=== PATIENT | male | born 1930 | race Caucasian/White ===

== ENCOUNTER 2017-01-27 18:38 | Inpatient (IN) | payer MEDICARE, BC ==
[2017-01-27] MEDS ORDERED: Piperacillin/Tazobactam 3.375 GM in Sodium Chloride 0.9% 100 ML IVPB SCH (21:00)
[2017-01-27] MEDS ORDERED: Oseltamivir 75 MG CAP PO SCH (21:00)
[2017-01-27] MEDS ORDERED: Acetaminophen 325 MG TAB PO PRN (21:29)
[2017-01-27] MEDS ORDERED: Bisacodyl 5 MG TAB PO PRN (21:29)
[2017-01-27] MEDS ORDERED: Vancomycin HCl 1 GM in Premix Bag 1 BAG IVPB SCH (21:30)
--- NOTE | 2017-01-27 22:25 | HP ---
PRIMARY CARE PROVIDER: Dr. Fawn Coker M.D. CHIEF COMPLAINT: Cough. HISTORY OF PRESENT ILLNESS: Mr. Abdul is a pleasant 86-year-old gentleman who was seen at [facility] on 01/27/2017. Mr. Abdul is currently nonmovable, unable to provide any significant history. History was obtained from discussion with his daughter by the bedside, discussi on with the emergency room physician, and by review of old medical records. Mr. Abdul has been having cough for a few days. He was diagnosed with influenza 3 days ago. He wa s started on Tamiflu. He was seen at [facility] yesterday after he was sent from [facility] for fever. It was recommended that he receive Tylenol [id number]. He was discharged back to [facility]. He was again seen in the emergency room today because he continued to have fever. He was also having vomiting and not able to retain medications. REVIEW OF SYSTEMS: Could not be completed because of the patient's nonverbal status. PAST MEDICAL HISTORY: Significant for coronary artery disease with coronary artery bypass graft, hyp ertension, dyslipidemia, dementia, meningioma, chronic cholelithiasis, sick sinus syndrome with pacem rachid, overactive bladder, Alzheimer disease, Parkinson disease. PAST SURGICAL HISTORY: Significant for coronary artery bypass graft, meningioma resection, pacemaker insertion, and carotid endarterectomy. SOCIAL HISTORY: He lives at [facility]. No history of tobacco use, alcohol use, or recr eational drug use. CODE STATUS: I discussed his code status. He is DNR. ALLERGIES: No known drug allergies. CURRENT MEDICATIONS: These were reviewed from the group home record. FAMILY HISTORY: Significant for myocardial infarction in his father. PHYSICAL EXAMINATION: GENERAL: Mr. Abdul is awake, alert, not in acute distress. VITAL SIGNS: Blood pressure is 115/68, pulse is 65, he is breathing at rate of 20, and saturating 96 % on room air. He is afebrile. EYES: No scleral icterus. No conjunctival pallor. ENT: Dry mucosal membranes, no oropharyngeal erythema or exudates. NECK: Supple, nontender, normal range of movement. Trachea midline. RESPIRATORY: Bilateral rhonchi present. Accessory muscles of breathing are not active. Chest wall movements are symmetric bilaterally. CARDIOVASCULAR: S1 and S2 are heard, regular. Peripheral pulses are palpable. No carotid bruit, no pericardial rub. ABDOMEN: Soft, nontender, bowel sounds are heard, no hepatomegaly, no splenomegaly. NEUROLOGIC: Full neurologic examination was not possible secondary to the patient's noncooperation. There is no facial droop. He has cogwheel rigidity. There is no tremor. Deep tendon reflexes 2+, plantar reflexes downgoing bilaterally. PSYCHIATRIC: The patient appears to be in normal mood. Unable to assess orientation to person, plac e, or time. SKIN: No rashes or subcutaneous nodules. LYMPHATIC: No cervical lymphadenopathy. MUSCULOSKELETAL: Moves all 4 extremities. LABORATORY DATA AND INVESTIGATIONS: Mr. Abdul's labs and investigations were reviewed. I reviewed his electrocardiogram which has tremor artifact. The patient appears to be in normal sinus rhythm. I also reviewed his chest x-ray from 01/26/2017, which does not reveal any pulmonary infiltrates. C T scan of the chest done today at [facility] showed multifocal pneumonia with cavitations in the le ft lower lobe concerning for cavitary pneumonic process. Laboratory investigations show normal white count, normal hemoglobin, decreased platelet count of 115,000, last known platelet count 160,000 on 01/05/2017, normal sodium, normal potassium, elevated creatinine of 1.55, last known creatinine 1.33 and on 01/05/2017, elevated blood urea nitrogen of 28, normal lactic acid level, unremarkable liver p rofile, urinalysis that is positive for protein, blood, bilirubin, and casts. ASSESSMENT AND PLAN: Mr. Abdul is a pleasant 86-year-old gentleman who was seen at [facility] on 01/27/2017 following transfer from [facility]. His problem li includes: 1. Pneumonia: Mr. Abdul has cavitary pneumonia of the left lower lobe. He will be admitted to [facility]. I will continue him on vancomycin and Zosyn which have already been started. We will aw ait blood cultures. 2. Influenza: I requested the emergency room physician to repeat the influenza screen. For now, we will continue him on Tamiflu. There is no documented influenza in the medical record available to stephanie gonzalez. 3. Renal insufficiency: Likely secondary to dehydration. 4. Dehydration: Provide intravenous fluids. Follow creatinine and electrolytes. 5. Coronary artery disease: Appears to be stable. 6. Hypertension: Monitor vital signs, titrate antihypertensives as needed. LEVEL OF RISK: High. LEVEL OF COMPLEXITY: High.
[2017-01-27] MEDS: Sodium Chloride 0.9% 1,000 ML IV SCH (23:20)
[2017-01-27] MEDS: Piperacillin/Tazobactam 4.5 GM in Sodium Chloride 0.9% 100 ML IVPB SCH (23:41)
[2017-01-28] MEDS: Acetaminophen 650 MG Suppository PR PRN (04:27)
[2017-01-28 05:05] LABS: Anion Gap 9 mmol/L (10-20); BUN (Urea Nitrogen) 31 mg/dL (8.4-25.7); Calc. Creatinine Clearance 46 mL/min (70-130); Calcium 8.3 mg/dL (7.8-10.44); Carbon Dioxide 28 mmol/L (23-31); Chloride 103 mmol/L (98-107); Estimated GFR-MDRD 52; Glucose 106 mg/dL (83-110); Potassium 3.8 mmol/L (3.5-5.1); Sodium 136 mmol/L (136-145)
[2017-01-28] MEDS: Piperacillin/Tazobactam 4.5 GM in Sodium Chloride 0.9% 100 ML IVPB SCH ×3 (05:17→22:11)
[2017-01-28 05:37] LABS: #Lymphocytes 1.1 thou/uL (1.20-3.40); #Monocytes 0.6 thou/uL (0.11-0.59); %Basophils 0.1 % (0.0-1.0); %Eosinophils 0.1 % (0.0-10.0); %Monocytes 7.4 % (0.0-10.0); %Neutrophils 78.3 % (42.0-75.0); Hemoglobin 12.4 g/dL (14.0-18.0); Mean Corpuscular HGB CONC 33.3 g/dL (32.0-36.0); Mean Corpuscular Hemoglobin 31.9 pg (27.0-31.0); Mean Corpuscular Volume 95.6 fl (80.0-94.0); PLT Morphology Comment Appears Decreased; Platelet Count 106 thou/uL (130-400); RBC Distribution Width 12.6 % (11.5-14.5); Red Blood Cell (RBC) Count 3.89 mill/uL (4.70-6.10); White Blood Cell (WBC) Count 7.6 thou/uL (4.8-10.8)
[2017-01-28] MEDS: Sodium Chloride 0.9% 1,000 ML IV SCH (08:21)
[2017-01-28] MEDS: Oseltamivir 75 MG CAP PO SCH ×2 (08:22→20:07)
--- NOTE | 2017-01-28 09:37 | CON ---
DATE OF CONSULTATION: 01/28/2017 HISTORY: This is an 86-year-old elderly gentleman presented as a DNR, [facility]. His x-ray was normal to my surprise. His CAT scan showed bibasilar infiltrates, a little bit more pr onounced infiltrate in the left base is suggestive of a cavitary infiltrate. Clearly these findings were not seen on the routine chest x-ray. The patient is unable to give any history. He has a daughter who is presently not available at this time. He was seen in [place] where a repeat influenza titer was positive. He has had persisten t pain. PAST MEDICAL HISTORY: Pertinent for known cardiac disease, history of stent placement, history of pa dashaaker. Coronary artery disease, history of Alzheimer's disease, Parkinson's dementia, hyperlipidem ia, hypertension. PAST SURGICAL HISTORY: Melanoma 2015, pneumo craniotomy. CABG, cholecystectomy, carotid surgery. R ight hip surgery. MEDICATIONS: A list of medicine from the jail included Ativan, oxybutynin, donepezil 10, Zof ran, potassium, lovastatin 40, Tylenol, hydralazine 10. ALLERGIES: None. SOCIAL/FAMILY HISTORY: Unclear whether he has any history of tobacco abuse, but previous medical rec ords which were reviewed extensively at length shows no alcohol or tobacco abuse, no drug abuse. Othe rwise unremarkable. REVIEW OF SYSTEMS: Otherwise 10 point negative. PHYSICAL EXAMINATION: GENERAL: Encephalopathic, but appears to be in no acute distress. VITAL SIGNS: Blood pressure is 180/80, sats 98, respiratory rate 17, temperature 99. CHEST: Chest revealed no wheezing or crackles. CARDIAC: Normal S1-S2. No gallops. ABDOMEN: Soft. No masses. LABORATORY: White count 7000, H&H 12 and 37, platelet count 106, low. His electrolytes normal. Cre atinine 1.35. BNP is normal. IMPRESSION: 1. Febrile illness. 2. Bilateral bronchopneumonia, left side appears cavitary, possibly aspiration. 3. Positive influenza titer, this is new. 4. Dementia. 5. Renal failure. 6. Coronary artery disease status post pacemaker. PLAN: He is on vancomycin and Zosyn which should be adequate. I have added steroids and scheduled n ebulizer treatments. Sputum for culture. If it is staph I am going to switch him over to Zyvox. Please note this is 70 minutes of my time spent at the bedside with the patient on the floor and in t he unit.
--- NOTE | 2017-01-28 16:02 | PDOC.PN ---
- Subjective Encounter Start Date: 01/28/17 Encounter Start Time: 16:00 Subjective: Seen and examined feeling a little bit better - Objective Resuscitation Status: Resuscitation Status DNR:Do Not Resuscitate Vital Signs & Weight: Vital Signs (12 hours) Temp Pulse Resp BP Pulse Ox 01/28/17 13:49 65 18 01/28/17 11:56 63 22 H 86/52 L 01/28/17 08:42 97 01/28/17 08:24 99.4 F 86 22 H 98 01/28/17 08:22 99.4 F 86 22 H 122/59 L 98 01/28/17 05:00 98.9 F Weight Weight 172 lb 12.8 oz I&O: 01/27/17 01/28/17 01/29/17 06:59 06:59 06:59 Intake Total 722 Output Total 550 Balance 172 Result Diagrams: 01/28/17 04:20 01/28/17 04:20 Phys Exam - Physical Examination Constitutional: NAD HEENT: PERRLA, moist MMs, sclera anicteric, TM's clear Neck: no nodes, no JVD, supple, full ROM Respiratory: no wheezing, no rales, no rhonchi, clear to auscultation bilateral Cardiovascular: RRR, no significant murmur, no rub Gastrointestinal: soft, non-tender, no distention, positive bowel sounds Musculoskeletal: no edema, pulses present Dx/Plan (1) Bilateral pneumonia Code(s): J18.9 - PNEUMONIA, UNSPECIFIED ORGANISM Status: Acute (2) Influenza Code(s): J11.1 - FLU DUE TO UNIDENTIFIED INFLUENZA VIRUS W OTH RESP MANIFEST Status: Acute (3) Fever Code(s): R50.9 - FEVER, UNSPECIFIED Status: Acute (4) Dementia Code(s): F03.90 - UNSPECIFIED DEMENTIA WITHOUT BEHAVIORAL DISTURBANCE Status: Chronic (5) Hypertension Code(s): I10 - ESSENTIAL (PRIMARY) HYPERTENSION Status: Chronic - Plan plan discussed w/ family, continue antibiotics, PT/OT, social security specialist, respiratory therapy Appreciate pulmonary input -: Should be able to transfer to medical atleast in the next 24hrs * .
[2017-01-28] MEDS: Dextrose 5 % And 0.9 % NaCl 1,000 ML IV SCH (17:44)
[2017-01-28] MEDS: Vancomycin HCl 1 GM in Premix Bag 1 BAG IVPB SCH (20:04)
[2017-01-29 05:19] LABS: #Lymphocytes 0.4 thou/uL (1.20-3.40); #Monocytes 0.1 thou/uL (0.11-0.59); #Neutrophils 3.4 thou/uL (1.40-6.50); %Basophils 0.3 % (0.0-1.0); %Eosinophils 0.1 % (0.0-10.0); %Lymphocytes 10.5 % (21.0-51.0); %Neutrophils 86.2 % (42.0-75.0); Hemoglobin 12.4 g/dL (14.0-18.0); Mean Corpuscular HGB CONC 33.6 g/dL (32.0-36.0); Mean Corpuscular Hemoglobin 32.1 pg (27.0-31.0); Mean Corpuscular Volume 95.6 fl (80.0-94.0); Mean Platelet Volume 7.8 fL (7.4-10.4); Platelet Count 100 thou/uL (130-400); RBC Distribution Width 12.4 % (11.5-14.5); Red Blood Cell (RBC) Count 3.85 mill/uL (4.70-6.10)
[2017-01-29 05:36] LABS: Anion Gap 15 mmol/L (10-20); BUN (Urea Nitrogen) 25 mg/dL (8.4-25.7); Calc. Creatinine Clearance 61 mL/min (70-130); Calcium 8.4 mg/dL (7.8-10.44); Carbon Dioxide 21 mmol/L (23-31); Chloride 107 mmol/L (98-107); Estimated GFR-MDRD 73; Glucose 210 mg/dL (83-110); Sodium 139 mmol/L (136-145)
[2017-01-29] MEDS: Dextrose 5 % And 0.9 % NaCl 1,000 ML IV SCH (06:14)
[2017-01-29] MEDS: Piperacillin/Tazobactam 4.5 GM in Sodium Chloride 0.9% 100 ML IVPB SCH ×3 (06:14→23:09)
[2017-01-29] MEDS: Oseltamivir 75 MG CAP PO SCH ×2 (09:46→21:27)
--- NOTE | 2017-01-29 13:22 | PQF ---
CLINICAL DOCUMENTATION IMPROVEMENT CLARIFICATION FORM: ICD-10 Updated PLEASE DO AN ADDENDUM TO THE PROGRESS NOTE WITH ANY DOCUMENTATION UPDATES OR ADDITIONS AND CARRY THROUGH TO DC SUMMARY. THANK YOU. DATE: 01/28/17 ATTN: DR. MARQUEZ Please exercise your independent, professional judgment in responding to the clarification form. Clinical indicators are provided on the bottom of this form for your review Please check appropriate box(s): [ ] Aspiration Pneumonia [ ] Empirically treating Gram Negative Pneumonia [ ] Empirically treating Anaerobic Pneumonia [ ] Simple Pneumonia (community acquired - nosocomial) [ ] Bronchopneumonia [ ] Pneumonia of unknown etiology [ ] Other diagnosis [ ] Unable to determine In addition, please specify: Present on Admission (POA): [ ] Yes [ ] No [ ] Unable to determine For continuity of documentation, please document condition throughout progress notes and discharge summary. Thank You. CLINICAL INDICATORS - SIGNS / SYMPTOMS / LABS H&P 01/27: "PNEUMONIA" CONSULTATION NOTE 01/28: "BILATERAL BRONCHOPNEUMONIA, LEFT SIDE APPEARS CAVITARY , POSSIBLY ASPIRATION. SPEECH THERAPY NOTE 01/28: "PT NOTED WITH CONTINUED WET, CRACKLY RESPIRATIONS THROUGHOUT PO TRIALS AND DELAYED THROAT CLEARING INCONSISTENTLY AND MULTIPLE WEAK SWALLOWS WITH ALL TEXTURES." RISKS: DEMENTIA MODERATE-SEVERE FUNCTIONAL IMPAIRMENT (PER SPEECH THERAPY NOTE 01/28) DYSPHAGIA TREATMENT: SPEECH THERAPY CONSULT PULMONARY CONSULT SOLUMEDROL (01/28-PRESENT) IV ZOSYN (ER-PRESENT) IV VANCOMYCIN (ER-PRESENT) DUONEBS (01/28-PRESENT) (This form is maintained as a part of the permanent medical record) 2014 [employer]. All Rights Reserved FARHAN [email or web address] Office: [phone] [facility] HOSPITALKannan
--- NOTE | 2017-01-29 18:32 | PDOC.PN ---
- Subjective Encounter Start Date: 01/29/17 Encounter Start Time: 18:31 Subjective: seen and examined failed swallowing evaluation - Objective Resuscitation Status: Resuscitation Status DNR:Do Not Resuscitate Vital Signs & Weight: Vital Signs (12 hours) Temp Pulse Resp BP Pulse Ox 01/29/17 15:50 98.6 F 70 20 137/59 L 100 01/29/17 12:59 68 18 96 01/29/17 12:00 98.0 F 82 20 162/70 H 99 01/29/17 08:14 100 01/29/17 08:11 71 20 100 01/29/17 08:00 97.4 F L 65 20 100 01/29/17 07:34 97.4 F L 65 20 146/67 H 100 Weight Weight 175 lb 4 oz I&O: 01/28/17 01/29/17 01/30/17 06:59 06:59 06:59 Intake Total 722 2393 Output Total 550 1100 Balance 172 1293 Result Diagrams: 01/29/17 04:25 01/29/17 04:25 Phys Exam - Physical Examination Constitutional: NAD HEENT: PERRLA, moist MMs, sclera anicteric, TM's clear Neck: no nodes, supple, full ROM +Rales Cardiovascular: RRR, no significant murmur, no rub Gastrointestinal: soft, non-tender, no distention Dx/Plan (1) Bilateral pneumonia Code(s): J18.9 - PNEUMONIA, UNSPECIFIED ORGANISM Status: Acute Qualifiers: Pneumonia type: aspiration pneumonia Lung location: lower lobe of lung Qualified Code(s): J69.0 - Pneumonitis due to inhalation of food and vomit (2) Influenza Code(s): J11.1 - FLU DUE TO UNIDENTIFIED INFLUENZA VIRUS W OTH RESP MANIFEST Status: Acute (3) Fever Code(s): R50.9 - FEVER, UNSPECIFIED Status: Acute (4) Dementia Code(s): F03.90 - UNSPECIFIED DEMENTIA WITHOUT BEHAVIORAL DISTURBANCE Status: Chronic (5) Hypertension Code(s): I10 - ESSENTIAL (PRIMARY) HYPERTENSION Status: Chronic - Plan plan discussed w/ family, continue antibiotics, PT/OT, delinquency prevention social worker, speech therapy, respiratory therapy Failed swallowing eval -: Daughter doesnt want PEG tube--but wants us to clarify with his -: May need pleasure feeding * .
[2017-01-29 20:36] LABS: Vancomycin, Trough 4.4 ug/mL
[2017-01-29] MEDS: Vancomycin HCl 1 GM in Premix Bag 1 BAG IVPB SCH ×2 (21:26→21:34)
--- NOTE | 2017-01-29 21:50 | PRG ---
DATE OF SERVICE: 01/29/2017 PHYSICAL EXAMINATION: VITAL SIGNS: Mr. Abdul is afebrile, heart rate in the 70s-80s, respiratory rate is 15, oximetry is 100%, blood pressure 137/59. LUNGS: Clear. HEART: Regular rhythm. ABDOMEN: Soft. IMPRESSION: 1. Probable aspiration pneumonia. 2. Positive influenza titer. 3. Dementia. 4. History of vascular disease including coronary artery disease. 5. Renal dysfunction with improved renal function with creatinine of 1.98 compared to 1.31 yesterday . 6. Mild anemia with stable hemoglobin at 12.4 grams. 7. Borderline thrombocytopenia.
[2017-01-30] MEDS: Dextrose 5 % And 0.9 % NaCl 1,000 ML IV SCH (01:53)
[2017-01-30] MEDS: Ondansetron HCl/PF 4 MG/2 ML Vial SLOW IVP PRN ×3 (02:22→15:20)
[2017-01-30] MEDS: Piperacillin/Tazobactam 4.5 GM in Sodium Chloride 0.9% 100 ML IVPB SCH (06:04)
[2017-01-30] MEDS: Oseltamivir 75 MG CAP PO SCH ×2 (09:03→20:00)
[2017-01-30] MEDS: Vancomycin HCl 1 GM in Premix Bag 1 BAG IVPB SCH (09:03)
[2017-01-30] MEDS ORDERED: Morphine 5 mg/5 ml in 0.9% NaCl/PF SYRINGE SLOW IVP PRN (10:50)
[2017-01-30] MEDS ORDERED: Morphine 5 MG/ML SYRINGE SLOW IVP SCH (11:00)
[2017-01-30] MEDS: Acetaminophen 650 MG Suppository PR PRN (15:24)
--- NOTE | 2017-01-30 17:56 | PDOC.PN ---
- Subjective Encounter Start Date: 01/30/17 Encounter Start Time: 17:54 Subjective: seen and examined --now on pleasured feeding - Objective Resuscitation Status: Resuscitation Status DNR:Do Not Resuscitate Vital Signs & Weight: Vital Signs (12 hours) Temp Pulse Resp BP Pulse Ox 01/30/17 16:00 99.0 F 63 20 116/71 97 01/30/17 11:05 99.6 F 64 18 128/90 100 01/30/17 08:00 99.2 F 69 20 98 01/30/17 07:37 99.2 F 69 20 179/70 H 98 Weight Weight 175 lb 4 oz I&O: 01/29/17 01/30/17 01/31/17 06:59 06:59 06:59 Intake Total 2393 995 Output Total 1100 325 Balance 1293 670 Result Diagrams: 01/29/17 04:25 01/29/17 04:25 Phys Exam - Physical Examination Constitutional: NAD HEENT: PERRLA Neck: no nodes, no JVD Respiratory: no wheezing, no rhonchi +rales Cardiovascular: RRR, no significant murmur, no rub Dx/Plan (1) Bilateral pneumonia Code(s): J18.9 - PNEUMONIA, UNSPECIFIED ORGANISM Status: Acute Qualifiers: Pneumonia type: aspiration pneumonia Lung location: lower lobe of lung Qualified Code(s): J69.0 - Pneumonitis due to inhalation of food and vomit (2) Influenza Code(s): J11.1 - FLU DUE TO UNIDENTIFIED INFLUENZA VIRUS W OTH RESP MANIFEST Status: Acute (3) Fever Code(s): R50.9 - FEVER, UNSPECIFIED Status: Acute (4) Dementia Code(s): F03.90 - UNSPECIFIED DEMENTIA WITHOUT BEHAVIORAL DISTURBANCE Status: Chronic (5) Hypertension Code(s): I10 - ESSENTIAL (PRIMARY) HYPERTENSION Status: Chronic - Plan plan discussed w/ family, PT/OT, geriatric social worker, respiratory therapy ok to transfer to medical floor -: family prefers pleasure feeding * .
[2017-01-30] MEDS: Morphine 10 MG/ML CARPUJECT SLOW IVP PRN (19:58)
[2017-01-30] MEDS: Amoxicillin/Potassium Clav 600 mg/5 ml Oral Suspension PO SCH (20:00)
--- NOTE | 2017-01-30 21:38 | PRG ---
DATE OF SERVICE: 01/30/2017 Mr. Abdul is still unable to give a history. He is nonverbal and it has been for years. He is in no distress, fairly rigid consistent with his diagnosis of parkinsonism. OBJECTIVE: VITAL SIGNS: He is afebrile, heart rate 60, respiratory rate is 20, oximetry is 97, blood pressure 1 16/71. LUNGS: Equal with clear breath sounds. HEART: Regular rhythm. ABDOMEN: Soft. LABORATORY DATA: There is no new lab today. IMPRESSION: 1. Dementia, most likely related to Parkinson's disease. 2. Positive influenza titer. 3. Probable aspiration pneumonia, clinically stable, can be switched to enteral antibiotics. 4. History of vascular disease. 5. Renal dysfunction. His talked to me for close to half an hour out in the [place]. She wants comfort care to be the ma in goal. I have encouraged her to deal with the step daughter, discuss not coming back to the hospit al should he become ill again and keep him in a care environment until he eventually passes. She believed he was in pain, so low dose morphine has been ordered for comfort. Palliative care team has been consulted to assist in planning for getting him back to a group home environment. He is stable to go back to the group home in my opinion or a Swing Bed.
[2017-01-31] MEDS: Morphine 10 MG/ML CARPUJECT SLOW IVP PRN (04:56)
[2017-01-31] MEDS: Oseltamivir 75 MG CAP PO SCH (09:21)
[2017-01-31] MEDS: Amoxicillin/Potassium Clav 600 mg/5 ml Oral Suspension PO SCH (09:21)
[2017-01-31] MEDS ORDERED: Lorazepam 0.5 MG TAB PO PRN (11:41)
[2017-01-31] MEDS ORDERED: Bisacodyl 10 MG SUPP PR PRN (11:41)
[2017-01-31] MEDS ORDERED: Acetaminophen 325 MG TAB PO PRN (11:41)
[2017-01-31] MEDS ORDERED: hydrALAZINE 10 MG TAB PO PRN (12:00)
[2017-01-31] MEDS ORDERED: Ondansetron ODT 4 MG TAB PO PRN (12:12)
[2017-01-31] MEDS ORDERED: Senokot S 8.6-50 MG TAB PO PRN (12:14)
[2017-01-31] MEDS ORDERED: Oxybutynin ER 5 MG TAB PO SCH (12:15)
[2017-01-31 13:34] VITALS: BP 191/86; TEMP 98.6
[2017-01-31] MEDS ORDERED: Lovastatin 20 MG TAB PO SCH (17:00)
--- NOTE | 2017-01-31 20:16 | DIS ---
PRIMARY CARE PROVIDER: Fawn Coker M.D. DATE OF ADMISSION: 01/27/2017 DATE OF DISCHARGE: 01/31/2017 DISCHARGE DIAGNOSES: 1. Influenza A infection. 2. Probable aspiration pneumonia. CONDITION OF PATIENT ON THE DAY OF DISCHARGE: Stable. Mr. Abdul was assessed on the day of discharge. He is nonverbal, unable to provide any history or review of systems. Vital signs are stable. S1 and S2 are heard, lungs are clear to auscultation josé miguel aterally. CONSULTATIONS DURING THIS HOSPITALIZATION: Pulmonary and Critical Care Medicine, Dr. Sanchez. HOSPITAL COURSE: Mr. Abdul is a pleasant 86-year-old gentleman who was admitted to [facility] on 01/27/2017 for probable aspiration pneumonia as well as influenza infection. H carlos received Tamiflu and intravenous antibiotics initially. He was subsequently stepped down to oral a ntibiotics. He is being discharged back to the retirement in a stable condition. He also had acute renal insufficiency with creatinine of 1.31 on 01/28/2017, it decreased into the no rmal range at 0.98 on 01/29/2017. DISCHARGE MEDICATIONS: Include acetaminophen p.r.n., Augmentin suspension 875 mg 2 times a day for 7 days, bisacodyl p.r.n., vitamin D3 of 1000 units daily, donepezil 10 mg at bedtime, hydralazine 10 m g daily as needed, Ativan 0.25 mg every 4 hours as needed, lovastatin 40 mg every evening, Namenda 10 mg 2 times a day, Zofran p.r.n., Tamiflu 75 mg 2 times a day until last dose on 02/01/2017, oxybutyn in 10 mg daily, MiraLax 17 grams at bedtime, potassium chloride 20 mEq daily, senna-S tablet one tabl et 2 times a day as needed. Many thanks for allowing me to participate in your patient's care. Please feel free to contact me wi th any questions or concerns. DISCHARGE DESTINATION: [facility]. TOTAL AMOUNT OF SPENT COORDINATING THIS DISCHARGE: 38 minutes.
[2017-01-31] MEDS ORDERED: Donepezil HCl 10 MG TAB PO SCH (21:00)
[2017-01-31] MEDS ORDERED: Polyethylene Glycol 3350 17 GM Packet PO SCH (21:00)
--- NOTE | 2017-01-31 21:23 | PRG ---
DATE OF SERVICE: 01/31/2017 SUBJECTIVE: Ms. Abdul did well overnight. He is stable on enteral antimicrobial therapy. OBJECTIVE: VITAL SIGNS: He is not febrile. Vital signs are stable. LUNGS: Clear. HEART: Regular rhythm. ABDOMEN: Soft. I do believe he is stable to go back to his long-term into a swing bed. I met with the daughter neil nd answered all of her questions. He will continue to be do not resuscitate patient. Hopefully, thi s will be confirmed when he gets back over to his long-term. The daughter and the patient's have no plans to put a PEG in him, perhaps suggested possibly getting hospice involved in the long-term environments and trying to keep him there and keep him as comfortable as possible. She quickly acknowledged that he would never want to be kept alive like this.
[2017-02-01] MEDS ORDERED: Oxybutynin ER 5 MG TAB PO SCH (09:00)
== END 2017-01-31 15:23 | DRG 179 ==
LOC: ERS 18:38 → IMCU/EMU 20:23
PROVIDERS: ADMIT Internal Medicine; ATTEND Internal Medicine
DX: J69.0 Pneumonitis due to inhalation of food and vomit (principal); D69.6 Thrombocytopenia, unspecified; G20 Parkinson's disease; J10.1 Influenza due to other identified influenza virus with other respiratory manifestations; E86.0 Dehydration; G30.9 Alzheimer's disease, unspecified; F02.80 Dementia in other diseases classified elsewhere, unspecified severity, without behavioral disturbance, psychotic disturbance, mood disturbance, and anxiety; Z95.1 Presence of aortocoronary bypass graft; I10 Essential (primary) hypertension; I25.10 Atherosclerotic heart disease of native coronary artery without angina pectoris; E78.5 Hyperlipidemia, unspecified; F03.90 Unspecified dementia, unspecified severity, without behavioral disturbance, psychotic disturbance, mood disturbance, and anxiety; Z95.0 Presence of cardiac pacemaker; Z66 Do not resuscitate; Z51.5 Encounter for palliative care; D64.9 Anemia, unspecified; F41.9 Anxiety disorder, unspecified; F32.9 Major depressive disorder, single episode, unspecified; Z87.891 Personal history of nicotine dependence
CPT/HCPCS: 36415; 80048; 80202; 85025; 94640; 96365; 96366; G8996-GN-CM; G8997-GN-CL; J2543; J3370; J7050; J7620